=== PATIENT | female | born 1980 | race Caucasian/White ===

== ENCOUNTER 2016-09-26 08:44 | Outpatient (CLI) | payer OTHER ==
[~2016-09-26] VITALS: Ht 165.1 cm; Wt 80.3 kg
[~2016-09-26 08:44] MED LIST: CEPH250S PO; DCS100C PO; DIPH25TA82 PO; HYDR-3720 PO; Ibuprofen PO; OMEP20CA12 PO; PREN1TAB19 PO; bcp PO
[2016-09-26 08:53] VITALS: BP 118/81
[2016-09-26] MEDS ORDERED: ENAL2.5T PO (08:58)
[2016-09-26] MEDS ORDERED: CETI10TA20 PO (08:59)
[2016-09-26] MEDS ORDERED: DIPH25CA79 PO (08:59)
[2016-09-26] MEDS ORDERED: ENAL20TA PO (09:14)
[2016-09-26 09:24] LABS: BASOPHILS % (AUTO) 0 % (0-10); EOSINOPHILS # (AUTO) 0.2 10^3/uL (0.0-0.3); EOSINOPHILS % (AUTO) 2 % (0-10); LYMPHOCYTES # (AUTO) 2.1 X 10^3 (1.0-4.0); LYMPHOCYTES % (AUTO) 34 % (12-44); MEAN CORPUSCULAR HEMOGLOBIN 30 PG (25-34); MEAN CORPUSCULAR HGB CONC 34 G/DL (32-36); MEAN CORPUSCULAR VOLUME 89 FL (80-99); MEAN PLATELET VOLUME 10.5 FL (7.4-10.4); MONOCYTES # (AUTO) 0.5 X 10^3 (0.0-1.0); MONOCYTES % (AUTO) 8 % (0-12); NEUTROPHILS # (AUTO) 3.5 X 10^3 (1.8-7.8); NEUTROPHILS % (AUTO) 56 % (42-75); PLATELET COUNT 254 10^3/uL (130-400); RED BLOOD COUNT 4.81 10^6/uL (4.35-5.85); RED CELL DISTRIBUTION WIDTH 12.8 % (10.0-14.5); WHITE BLOOD COUNT 6.3 10^3/uL (4.3-11.0)
== END 2016-09-26 09:12 | disposition home or self-care (01) ==
LOC: PREOP 08:44
PROVIDERS: ATTEND Obstetrics & Gynecology
DX: Z01.812 Encounter for preprocedural laboratory examination (principal); Z11.2 Encounter for screening for other bacterial diseases; N93.8 Other specified abnormal uterine and vaginal bleeding; N92.1 Excessive and frequent menstruation with irregular cycle; D64.9 Anemia, unspecified
CPT/HCPCS: 36415; 85025; 87081

== ENCOUNTER 2016-09-30 10:07 | Day surgery (SDC) | payer OTHER ==
[~2016-09-30] VITALS: Ht 165.1 cm; Wt 80.3 kg
[~2016-09-30 10:07] MED LIST changes: +CETI10TA20 PO; +DIPH25CA79 PO; +ENAL2.5T PO; +ENAL20TA PO; +LACTATED RINGERS 1,000 ML IV PRN
[2016-09-30] MEDS ORDERED: ceFAZolin 1 GM/NS 50 ML IVPB IV ONE ×2 (10:30)
[2016-09-30 10:47] VITALS: BP 110/78
[2016-09-30] MEDS ORDERED: LIDOCAINE JELLY 2% (XYLOCAINE) 5 ML TUBE ONE ×2 (11:33)
[2016-09-30] MEDS ORDERED: LIDOCAINE PF 2% 10 ML (XYLOCAINE) AMP ONE ×2 (11:33)
[2016-09-30] MEDS ORDERED: ROCURONIUM 50 MG/5 ML (ZEMURON) VIAL IV ONE ×2 (11:33)
[2016-09-30] MEDS ORDERED: LACTATED RINGERS 1,000 ML IV ONE (11:33)
[2016-09-30] MEDS ORDERED: ONDANSETRON 4 MG/2 ML (SDV) Z0FRAN ONE ×2 (11:33)
[2016-09-30] MEDS ORDERED: MIDAZOLAM 2 MG/2 ML (VERSED) VIAL ONE (11:33)
[2016-09-30] MEDS ORDERED: LACTATED RINGERS 0 ML IV ONE (11:33)
[2016-09-30] MEDS ORDERED: proPOfol 200 MG/20 ML (DIPRIVAN) VIAL IV ONE ×2 (11:33)
[2016-09-30] MEDS ORDERED: fentaNYL INJECTION 100 MCG/2 ML AMP ONE (11:34)
[2016-09-30] MEDS ORDERED: DEXAMETHASONE PF 10 MG/ML (DECADRON) VIAL ONE (13:19)
[2016-09-30] MEDS ORDERED: SEVOFLURANE (ULTANE) 15 ML INHAL SOLN ONE (13:19)
[2016-09-30] MEDS ORDERED: D5 LR IV SOLUTION 1,000 ML IV SCH (13:22)
--- NOTE | 2016-09-30 13:22 | Progress Note-Pre Operative ---
Pre-Operative Progress Note H&P Reviewed The H&P was reviewed, patient examined and no changes noted. Date H&P Reviewed: September 30, 2016 Time H&P Reviewed: 13:22 Pre-Operative Diagnosis: dysfunctional uterine bleeding/menorrhagia DANDY SOMMERS MD September 30, 2016 1:22 pm
[2016-09-30] MEDS ORDERED: TRAM-42 PO (13:25)
--- NOTE | 2016-09-30 13:27 | Discharge Instructions ---
Discharge Instructions Discharge Medications New, Converted or Re-Newed RX: RX on Chart Patient Instructions Patient Instructions: as instructed Return to The Hospital For: as instructed Activity & Diet Discharge Diet: No Restrictions Activity as Tolerated: Yes Orders-Post D/C & Referrals Follow Up Appt: Call to make follow up appt. for patient in 2 weeks. Activity: Rest for 24 hours, than as tolerated. continue your own home medications Diet: As tolerated-Clear Liquids only if nauseated. May shower or tub bathe as desired. activity as tolerated except for nothing in the vagina for 2 weeks no tampons douching or intercourse Patient to return to the clinic as soon as possible for: Temperature greater than 101F, Severe Pain, Foul discharge from incision or vagina, Excessive Bleeding (more than a period). DANDY SOMMERS MD September 30, 2016 1:27 pm
[2016-09-30] MEDS ORDERED: ONDANSETRON 4 MG/2 ML (SDV) Z0FRAN IVP PRN ×2 (13:30→13:45)
[2016-09-30] MEDS ORDERED: MEPERIDINE (DEMEROL) INJ 100 MG/ML IM ONE (13:30)
[2016-09-30] MEDS ORDERED: PROMETHAZINE INJ 25 MG/ML (PHENERGAN) AMP IM ONE (13:30)
[2016-09-30] MEDS ORDERED: HYDROcodone/APAP 10 MG/325 MG (LORTAB) TAB PO PRN (13:30)
[2016-09-30] MEDS ORDERED: ESTROGENS CONJ IV 25 MG/5 ML (PREMARIN) VIAL IVP ONE (13:30)
[2016-09-30] MEDS ORDERED: KETOROLAC 30 MG/ML VIAL IVP ONE (13:30)
[2016-09-30] MEDS ORDERED: MEPERIDINE (DEMEROL) INJ 50 MG/ML IVP PRN (13:45)
[2016-09-30] MEDS ORDERED: fentaNYL INJECTION 100 MCG/2 ML AMP IVP PRN (13:45)
[2016-09-30] MEDS ORDERED: morphine INJ 10 MG/ML 1ML (SYR OR VIAL) IVP PRN (13:45)
[2016-09-30] MEDS ORDERED: KETOROLAC 30 MG/ML VIAL ONE (14:10)
[2016-09-30] MEDS ORDERED: morphine INJ 10 MG/ML 1ML (SYR OR VIAL) ONE (14:11)
[2016-09-30] MEDS ORDERED: ESTROGENS CONJ IV 25 MG/5 ML (PREMARIN) VIAL ONE (14:11)
[2016-09-30] MEDS ORDERED: WATER (STERILE) FOR INJECTION 10 ML ONE (14:11)
[2016-09-30 14:55] VITALS: BP 114/74
[2016-09-30 15:25] VITALS: BP 94/56
[2016-09-30 16:10] VITALS: BP 94/56
--- NOTE | 2016-10-01 12:37 | OPERATIVE REPORT ---
DATE OF SERVICE: 09/30/2016 PREOPERATIVE DIAGNOSES: 1. Dysfunctional uterine bleeding. 2. Menorrhagia. POSTOPERATIVE DIAGNOSES: 1. same with likely endometrial polyps OPERATIVE PROCEDURE: Hysteroscopy with directed biopsies and D&C. OPERATIVE DESCRIPTION: With the patient in the supine position under satisfactory general anesthesia, she was repositioned in the dorsal lithotomy position in the Napoleon stirrups and then prepped and draped in the usual fashion for vaginal surgery. The urinary bladder was entered with a straight catheter. A weighted speculum placed in the posterior fornix. The cervix was exposed and grasped anteriorly with single tooth tenaculum. The uterus was sounded to 10 1/2 cm with uterine sound. The cervix was then serially dilated with Lopez dilators to a #20 Lopez and then a #9 Heger dilator was used as the final step in dilation. The hysteroscope was entered. Using LR as a distending medium, the endometrial cavity was examined. There were polypoid masses emanating from the anterior and posterior surfaces of the uterus. Data Processing Supervisor biopsies were taken from these areas and sent to pathology for permanent section. The hysteroscope was then removed. The endometrial cavity sharply curetted in all 4 quadrants until good uterine cry and that tissue labeled appropriately and sent to pathology for permanent section as well. The hysteroscope was reintroduced. All blood clots and debris was evacuated from the uterine cavity. The endometrial cavity showed no remaining abnormal pathology and no significant bleeding. The hysteroscope was withdrawn slowly examining the endocervical canal which appeared normal as well. With the hysteroscope removed, the tenaculum was removed as well. There was some bleeding from both puncture sites. These were touched with silver nitrate to affect hemostasis. With hemostasis assured, sponge and needle counts correct, a total of 600 mL of LR was instilled and 450 mL were recovered. There was a small amount lost in the drapes. The other would have been retained by the patient. The procedure at this point was terminated. The patient was uneventfully awakened from her general anesthesia and transferred to the recovery room in stable condition with plans for discharge home PAR. The patient tolerated the procedure well. Job ID: [id number] DocumentID: [id number] Dictated Date: 09/30/2016 13:53:15 Supervisor Dials Date: 10/01/2016 06:10:19 Dictated By: MD ROSETTA BROWN
== END 2016-09-30 16:10 | disposition home or self-care (01) ==
LOC: SDC 10:07
PROVIDERS: ATTEND Obstetrics & Gynecology
DX: N93.8 Other specified abnormal uterine and vaginal bleeding (principal); N92.1 Excessive and frequent menstruation with irregular cycle; N84.0 Polyp of corpus uteri
CPT/HCPCS: 84703; 88305

== ENCOUNTER 2017-08-11 16:01 | Emergency (ER) | payer OTHER ==
[~2017-08-11] VITALS: Ht 165.1 cm; Wt 83.5 kg
[~2017-08-11 16:01] MED LIST changes: -LACTATED RINGERS 1,000 ML IV PRN; +TRAM-42 PO
[2017-08-11 16:28] LABS: BASOPHILS % (AUTO) 0 % (0-10); EOSINOPHILS # (AUTO) 0.2 10^3/uL (0.0-0.3); EOSINOPHILS % (AUTO) 4 % (0-10); HEMATOCRIT 39 % (35-52); HEMOGLOBIN 13.4 G/DL (11.5-16.0); LYMPHOCYTES # (AUTO) 2.1 X 10^3 (1.0-4.0); LYMPHOCYTES % (AUTO) 33 % (12-44); MEAN CORPUSCULAR HEMOGLOBIN 30 PG (25-34); MEAN CORPUSCULAR HGB CONC 34 G/DL (32-36); MEAN CORPUSCULAR VOLUME 88 FL (80-99); MEAN PLATELET VOLUME 10.2 FL (7.4-10.4); MONOCYTES # (AUTO) 0.7 X 10^3 (0.0-1.0); MONOCYTES % (AUTO) 11 % (0-12); NEUTROPHILS # (AUTO) 3.2 X 10^3 (1.8-7.8); NEUTROPHILS % (AUTO) 52 % (42-75); PLATELET COUNT 262 10^3/uL (130-400); RED BLOOD COUNT 4.45 10^6/uL (4.35-5.85); RED CELL DISTRIBUTION WIDTH 13.1 % (10.0-14.5); WHITE BLOOD COUNT 6.2 10^3/uL (4.3-11.0)
[2017-08-11 16:46] LABS: ALANINE AMINOTRANSFERASE 16 U/L (0-55); ALKALINE PHOSPHATASE 83 U/L (40-136); BILIRUBIN,TOTAL 0.2 MG/DL (0.1-1.0); BUN/CREATININE RATIO 8; CALCIUM 8.6 MG/DL (8.5-10.1); CARBON DIOXIDE 24 MMOL/L (21-32); CHLORIDE 107 MMOL/L (98-107); CREATININE SERUM 0.74 MG/DL (0.60-1.30); GFR ESTIMATED > 60; GLUCOSE 82 MG/DL (70-105); POTASSIUM 3.5 MMOL/L (3.6-5.0); SODIUM 140 MMOL/L (135-145)
--- NOTE | 2017-08-11 16:53 | Diagnostic Imaging Report ---
CLINICAL INDICATION: Patient with chest pain. Exam: Chest x-ray PA and lateral views. Comparisons: None. Findings: Lungs/pleura: Lungs are clear. There is no pneumothorax. There is no pleural effusion. Mediastinum: Unremarkable. Pulmonary vasculature: Unremarkable. Heart: Unremarkable. Bones/extrathoracic soft tissue: There is mild right curvature of the lumbar spine. Impression: There is no radiographic evidence of acute cardiopulmonary process. Dictated by: Dictated on workstation # [id number]
--- NOTE | 2017-08-11 17:06 | ED Chest Pain ---
General Chief Complaint: Chest Pain Stated Complaint: CP Nursing Triage Note: PATIENT STATES THAT LAST NIGHT SHE WAS DIZZY AND LIGHTHEADED. SHE WAS SLIGHTLY SOB. SHE STARTED HAVING CP TODAY STARTING AROUND 1130. TOOK 325 ASA AT 1330. WENT TO [facility] BUT WAS SENT HERE. Nursing Sepsis Screen: No Definite Risk Source: patient Exam Limitations: no limitations History of Present Illness Date Seen by Provider: Aug 11, 2017 Time Seen by Provider: 17:01 Initial Comments The patient is a 37-year-old white female who presents with a chief complaint of central upper chest pain and fluttering. She reports that last night while she was in the yard with her 3-year-old she had a short spell of this. She felt a little dizzy and then it cleared. Today was said to have been more intense and lasted longer. Even then she was going to ignore it but her mother and her coworkers prevailed. She has never smoked. She has hypertension and takes enalapril once daily. She is not diabetic. She still has menses and uses control pills. Recently she has been taking phentermine and attempt to lose some weight prior to her August. She states that her grandmother in her 50s presumably of heart disease. Timing/Duration: 1 hour Severity/Quality: moderate, pressure, tightness Location: central, other Prior CP/Workup: no prior chest pain Allergies and Home Medications Allergies Coded Allergies: yellow dye (Verified Allergy, Severe, anaphylaxis, 10/18/13) Yellow dyes # 4 and 5 Sulfa (Sulfonamide Antibiotics) (Verified Adverse Reaction, Mild, nausea/ vomiting, 10/18/13) Home Medications Cetirizine HCl 10 Mg Tablet, 10 MG PO HS, (Reported) Diphenhydramine HCl 25 Mg Capsule, 50 MG PO HS, (Reported) take 2 (25mg) tabs Enalapril Maleate 20 Mg Tablet, 20 MG PO HS, (Reported) Tramadol HCl 50 Mg Tablet, 50 MG PO Q6H Prescribed by: DANDY VILLEGAS on 09/30/16 1325 [bcp] 1 TAB, 1 TAB PO HS, (Reported) Patient Home Medication List Home Medication List Reviewed: Yes Review of Systems Constitutional: see HPI EENTM: No Symptoms Reported Respiratory: Shortness of Air (fleeting at onset of pain) Cardiovascular: Chest Pain, Palpitations Gastrointestinal: No Symptoms Reported Genitourinary: No Symptoms Reported Musculoskeletal: no symptoms reported Skin: no symptoms reported Psychiatric/Neurological: No Symptoms Reported Endocrine: No Symptoms Reported Hematologic/Lymphatic: No Symptoms Reported Past Hlrtojr-Knnmzr-Loirds Hx Patient Social History Alcohol Use: Rarely Uses Recreational Drug Use: No Smoking Status: Never a Smoker 2nd Hand Smoke Exposure: No Recent Foreign Travel: No Contact w/Someone Who Travel: No Recent Infectious Disease Expo: No Recent Hopitalizations: No Immunizations Up To Date Tetanus Booster (TDap): More than 5yrs PED Vaccines UTD: Yes Date of Influenza Vaccine: Feb 26, 2015 Seasonal Allergies Seasonal Allergies: Yes Surgeries History of Surgeries: Yes (RIGHT ANKLE SURGERY FOR LIGAMENTS) Surgeries: Appendectomy, Gallbladder, Orthopedic Respiratory History of Respiratory Disorde: No Cardiovascular History of Cardiac Disorders: Yes (heart murmur can be heard at times) Cardiac Disorders: Hypertension Neurological History of Neurological Disord: Yes (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) Neurological Disorders: Seizure Disorder Reproductive System Hx Reproductive Disorders: Yes Sexually Transmitted Disease: No HIV/AIDS: No Female Reproductive Disorders: Ovarian Cyst Gastrointestinal History of Gastrointestinal Di: No Gastrointestinal Disorders: Gall Bladder Disease Musculoskeletal History of Musculoskeletal Dis: Yes (RIGHT ANKLE RECONSTRUCTION FOR LIGAMENTS) Endocrine History of Endocrine Disorders: No HEENT Loss of Vision: Denies Hearing Impairment: Denies Cancer History of Cancer: No Psychosocial History of Psychiatric Problem: No Integumentary History of Skin or Integumenta: No Blood Transfusions History of Blood Disorders: No Family Medical History Family Medial History: Arthritis 19 MOTHER MATERNAL GDMA Cardiovascular disease MATERNAL GDPA PATERNAL GDMA Cataracts MATERNAL GDMA MATERNAL GDPA Diabetes mellitus PATERNAL GDMA Headache disorder 19 MOTHER Hypertension PATERNAL GDMA Myocardial infarction PATERNAL GDMA Osteoporosis 19 MOTHER MATERNAL GDMA No Family History of: AIDS Abdominal aortic aneurysm Benton's disease Alcoholism Alzheimer's disease Aphasia Asthma Cancer of mouth Colon cancer Completed stroke Congenital disease Congenital heart disease Coronary thrombosis Cystic fibrosis Deafness or hearing loss Dementia Drug abuse Dysphasia Fibrocystic disease of breast Gastroenteritis Glaucoma Hypercholesterolemia Infertility Kidney disease Neoplasm Not obtainable due to adoption Parkinson's disease Prostate cancer Psychosocial problem Respiratory disorder Seizure disorder Severe allergy Thyroid disease Tuberculosis Visual disorder Physical Exam Vital Signs Vital Signs - First Documented 08/11/17 16:06 Temp 98.0 Pulse 92 Resp 18 B/P (MAP) 136/98 (111) Pulse Ox 98 O2 Delivery Room Air Capillary Refill : Less Than 3 Seconds General Appearance: Anxious HEENT: Normal ENT Inspection Neck: Full Range of Motion, Normal Inspection, Non Tender Respiratory: Chest Non Tender, Lungs Clear, Normal Breath Sounds, No Accessory Muscle Use, No Respiratory Distress Cardiovascular: Regular Rate, Rhythm, No Edema, No Gallop, No JVD, No Murmur, Normal Peripheral Pulses Gastrointestinal: Normal Bowel Sounds, No Organomegaly, No Pulsatile Mass, Non Tender Extremity: Normal Capillary Refill, Normal Inspection, Normal Range of Motion, Non Tender, No Calf Tenderness, No Pedal Edema Neurologic/Psychiatric: Alert, Oriented x3, No Motor/Sensory Deficits, Normal Mood/Affect Skin: Normal Color, Warm/Dry Lymphatic: No Adenopathy Progress/Results/Core Measures Results/Orders Lab Results Laboratory Tests Test 08/11/17 16:20 Range/Units White Blood Count 6.2 4.3-11.0 10^3/uL Red Blood Count 4.45 4.35-5.85 10^6/uL Hemoglobin 13.4 11.5-16.0 G/DL Hematocrit 39 35-52 % Mean Corpuscular Volume 88 80-99 FL Mean Corpuscular Hemoglobin 30 25-34 PG Mean Corpuscular Hemoglobin Concent 34 32-36 G/DL Red Cell Distribution Width 13.1 10.0-14.5 % Platelet Count 262 130-400 10^3/uL Mean Platelet Volume 10.2 7.4-10.4 FL Neutrophils (%) (Auto) 52 42-75 % Lymphocytes (%) (Auto) 33 12-44 % Monocytes (%) (Auto) 11 0-12 % Eosinophils (%) (Auto) 4 0-10 % Basophils (%) (Auto) 0 0-10 % Neutrophils # (Auto) 3.2 1.8-7.8 X 10^3 Lymphocytes # (Auto) 2.1 1.0-4.0 X 10^3 Monocytes # (Auto) 0.7 0.0-1.0 X 10^3 Eosinophils # (Auto) 0.2 0.0-0.3 10^3/uL Basophils # (Auto) 0.0 0.0-0.1 10^3/uL Sodium Level 140 135-145 MMOL/L Potassium Level 3.5 L 3.6-5.0 MMOL/L Chloride Level 107 98-107 MMOL/L Carbon Dioxide Level 24 21-32 MMOL/L Anion Gap 9 5-14 MMOL/L Blood Urea Nitrogen 6 L 7-18 MG/DL Creatinine 0.74 0.60-1.30 MG/DL Estimat Glomerular Filtration Rate > 60 BUN/Creatinine Ratio 8 Glucose Level 82 70-105 MG/DL Calcium Level 8.6 8.5-10.1 MG/DL Total Bilirubin 0.2 0.1-1.0 MG/DL Aspartate Amino Transf (AST/SGOT) 15 5-34 U/L Alanine Aminotransferase (ALT/SGPT) 16 0-55 U/L Alkaline Phosphatase 83 40-136 U/L Troponin I < 0.30 <0.30 NG/ML Total Protein 7.0 6.4-8.2 GM/DL Albumin 4.0 3.2-4.5 GM/DL My Orders Orders - RANDY ARAUJO MD Ekg Tracing (08/11/17 16:05) Cbc With Automated Diff (08/11/17 16:19) Comprehensive Metabolic Panel (08/11/17 16:19) Troponin I (08/11/17 16:19) Chest 1 View, Ap/Pa Only (08/11/17 16:19) Vital Signs/I&O Vital Sign - Last 12Hours 08/11/17 16:06 Temp 98.0 Pulse 92 Resp 18 B/P (MAP) 136/98 (111) Pulse Ox 98 O2 Delivery Room Air Blood Pressure Mean: 111 Departure Communication (Admissions) Progress Notes Reports that pulse at her job was said to be 120 Lab and EKG are negative. Impression Impression: Primary Impression: Chest pain Disposition: 01 HOME, SELF-CARE Condition: Improved Departure-Patient Inst. Decision time for Depature: 17:29 Referrals: JAM PALMER MD (PCP/Family) Primary Care Physician Patient Instructions: Chest Pain That Is Not Caused by the Heart (DC) Add. Discharge Instructions: All discharge instructions reviewed with patient and/or family. Voiced understanding. Stop the phentermine Return if recurrence of pain or palpitation RANDY ARAUJO MD Aug 11, 2017 17:06
[2017-08-11 17:34] VITALS: BP 136/98
--- OUTSIDE RECORDS SUMMARY | 2017-08-11 17:46 | XMS REPORT | Continuity of Care Document ---
Author Author [facility] Organization [facility] Address Unknown Phone Unavailable Allergies Active Description Code Type Severity Reaction Onset Reported/Identified Relationship to Patient Clinical Status Yes Sulfa (Sulfonamide Antibiotics) [id number] Drug Allergy Mild nausea/vomiting 10/18/2013 Yes yellow dye [id number] Drug Allergy Severe anaphylaxis 10/18/2013 Medications There is no data. Problems Date Dx Coded Attending Type Code Diagnosis Diagnosed By 10/19/2013 TOOTIE DAMIAN, DANDY Corado Ot 543.0 10/19/2013 TOOTIE DAMIAN, DANDY Corado Ot 620.2 10/19/2013 DANDY SOMMERS MD Ot 620.5 10/19/2013 DANDY SOMMERS MD, Ot 620.8 10/19/2013 DANDY SOMMERS MD Ot 648.93 05/01/2014 DANDY SOMMERS MD, Ot 642.43 05/01/2014 DANDY SOMMERS MD, Ot 642.43 05/02/2014 DANDY SOMMERS MD Ot 642.43 05/07/2014 DANDY SOMMERS MD Ot 642.43 05/08/2014 DANDY SOMMERS MD Ot 642.43 05/12/2014 DANDY SOMMERS MD Ot 642.43 05/12/2014 DANDY SOMMERS MD Ot 642.43 05/23/2015 SHANTAL RAI APRN Ot R11.2 NAUSEA WITH VOMITING, UNSPECIFIED 05/23/2015 SHANTAL RAI APRN Ot R19.7 DIARRHEA, UNSPECIFIED 05/23/2015 DANDY SOMMERS MD Ot 642.43 05/26/2015 DANDY SOMMERS MD, Ot 642.43 10/09/2015 ILIANA MORALES DDS Ot H05.011 CELLULITIS OF RIGHT ORBIT 10/27/2015 LOWE DDS, ILIANA Ot H05.011 CELLULITIS OF RIGHT ORBIT 09/16/2016 DANDY SOMMERS MD, Ot 642.43 MILD/NOS PREECLAMP-ANTEP 09/16/2016 LOWE DDS, ILIANA Ot H05.011 CELLULITIS OF RIGHT ORBIT 09/23/2016 DANDY SOMMERS MD, Ot 642.43 MILD/NOS PREECLAMP-ANTEP 09/23/2016 LOWE DDS, ILIANA Ot H05.011 CELLULITIS OF RIGHT ORBIT 09/26/2016 DANDY SOMMERS MD, Ot D64.9 ANEMIA, UNSPECIFIED 09/26/2016 DANDY OSMMERS MD, Ot N92.1 EXCESSIVE AND FREQUENT MENSTRUATION WITH 09/26/2016 DANDY SOMMERS MD, Ot N93.8 OTHER SPECIFIED ABNORMAL UTERINE AND VAG 09/26/2016 DANDY SOMMERS MD, Ot Z01.812 ENCOUNTER FOR PREPROCEDURAL LABORATORY E 09/26/2016 DANDY SOMMERS MD, Ot Z11.2 ENCOUNTER FOR SCREENING FOR OTHER BACTER 09/28/2016 DANDY SOMMERS MD, Ot 642.43 MILD/NOS PREECLAMP-ANTEP 09/28/2016 LOWE DDS, ILIANA Ot H05.011 CELLULITIS OF RIGHT ORBIT 09/30/2016 DANDY SOMMERS MD Ot N84.0 POLYP OF CORPUS UTERI 09/30/2016 DANDY SOMMERS MD, Ot N92.1 EXCESSIVE AND FREQUENT MENSTRUATION WITH 09/30/2016 DANDY SOMMERS MD Ot N93.8 OTHER SPECIFIED ABNORMAL UTERINE AND VAG 10/02/2016 DANDY SOMMERS MD, Ot D64.9 ANEMIA, UNSPECIFIED 10/02/2016 DANDY SOMMERS MD, Ot N92.1 EXCESSIVE AND FREQUENT MENSTRUATION WITH 10/02/2016 DANDY SOMMERS MD, Ot N93.8 OTHER SPECIFIED ABNORMAL UTERINE AND VAG 10/02/2016 DANDY SOMMERS MD, Ot Z01.812 ENCOUNTER FOR PREPROCEDURAL LABORATORY E 10/02/2016 DANDY SOMMERS MD, Ot Z11.2 ENCOUNTER FOR SCREENING FOR OTHER BACTER 10/05/2016 DANDY SOMMERS MD, Ot N84.0 POLYP OF CORPUS UTERI 10/05/2016 DANDY SOMMERS MD, Ot N92.1 EXCESSIVE AND FREQUENT MENSTRUATION WITH 10/05/2016 DANDY SOMMERS MD Ot N93.8 OTHER SPECIFIED ABNORMAL UTERINE AND VAG 10/12/2016 DANDY SOMMERS MD, Ot N84.0 POLYP OF CORPUS UTERI 10/12/2016 DANDY SOMMERS MD, Ot N92.1 EXCESSIVE AND FREQUENT MENSTRUATION WITH 10/12/2016 DANDY SOMMERS MD, Ot N93.8 OTHER SPECIFIED ABNORMAL UTERINE AND VAG 10/27/2016 DANDY SOMMERS MD, Ot 642.43 MILD/NOS PREECLAMP-ANTEP 10/27/2016 LOWE DDS, ILIANA Ot H05.011 CELLULITIS OF RIGHT ORBIT 11/12/2016 DANDY SOMMERS MD, Ot 642.43 MILD/NOS PREECLAMP-ANTEP 11/12/2016 LOWAelja DDS, ILIANA Ot H05.011 CELLULITIS OF RIGHT ORBIT Procedures There is no data. Results Test Result Range Complete blood count (CBC) with automated white blood cell (WBC) differential - 09/26/16 09:10 Blood leukocytes automated count (number/volume) 6.3 10*3/uL 4.3-11.0 Blood erythrocytes automated count (number/volume) 4.81 10*6/uL 4.35-5.85 Venous blood hemoglobin measurement (mass/volume) 14.3 g/dL 11.5-16.0 Blood hematocrit (volume fraction) 43 % 35-52 Automated erythrocyte mean corpuscular volume 89 [foz_us] 80-99 Automated erythrocyte mean corpuscular hemoglobin (mass per erythrocyte) 30 pg 25-34 Automated erythrocyte mean corpuscular hemoglobin concentration measurement ( mass/volume) 34 g/dL 32-36 Automated erythrocyte distribution width ratio 12.8 % 10.0-14.5 Automated blood platelet count (count/volume) 254 10*3/uL 130-400 Automated blood platelet mean volume measurement 10.5 [foz_us] 7.4-10.4 Automated blood neutrophils/100 leukocytes 56 % 42-75 Automated blood lymphocytes/100 leukocytes 34 % 12-44 Blood monocytes/100 leukocytes 8 % 0-12 Automated blood eosinophils/100 leukocytes 2 % 0-10 Automated blood basophils/100 leukocytes 0 % 0-10 Blood neutrophils automated count (number/volume) 3.5 10*3 1.8-7.8 Blood lymphocytes automated count (number/volume) 2.1 10*3 1.0-4.0 Blood monocytes automated count (number/volume) 0.5 10*3 0.0-1.0 Automated eosinophil count 0.2 10*3/uL 0.0-0.3 Automated blood basophil count (count/volume) 0.0 10*3/uL 0.0-0.1 Methicillin resistant Staphylococcus aureus (MRSA) screening culture - 09:10 Methicillin resistant Staphylococcus aureus (MRSA) screening culture NEG NRG Urine beta human chorionic gonadotropin (hCG) measurement - 09/30/16 10:25 Urine beta human chorionic gonadotropin (hCG) measurement NEGATIVE NEGATIVE Complete blood count (CBC) with automated white blood cell (WBC) differential - 08/11/17 16:20 Blood leukocytes automated count (number/volume) 6.2 10*3/uL 4.3-11.0 Blood erythrocytes automated count (number/volume) 4.45 10*6/uL 4.35-5.85 Venous blood hemoglobin measurement (mass/volume) 13.4 g/dL 11.5-16.0 Blood hematocrit (volume fraction) 39 % 35-52 Automated erythrocyte mean corpuscular volume 88 [foz_us] 80-99 Automated erythrocyte mean corpuscular hemoglobin (mass per erythrocyte) 30 pg 25-34 Automated erythrocyte mean corpuscular hemoglobin concentration measurement ( mass/volume) 34 g/dL 32-36 Automated erythrocyte distribution width ratio 13.1 % 10.0-14.5 Automated blood platelet count (count/volume) 262 10*3/uL 130-400 Automated blood platelet mean volume measurement 10.2 [foz_us] 7.4-10.4 Automated blood neutrophils/100 leukocytes 52 % 42-75 Automated blood lymphocytes/100 leukocytes 33 % 12-44 Blood monocytes/100 leukocytes 11 % 0-12 Automated blood eosinophils/100 leukocytes 4 % 0-10 Automated blood basophils/100 leukocytes 0 % 0-10 Blood neutrophils automated count (number/volume) 3.2 10*3 1.8-7.8 Blood lymphocytes automated count (number/volume) 2.1 10*3 1.0-4.0 Blood monocytes automated count (number/volume) 0.7 10*3 0.0-1.0 Automated eosinophil count 0.2 10*3/uL 0.0-0.3 Automated blood basophil count (count/volume) 0.0 10*3/uL 0.0-0.1 Comprehensive metabolic panel - 08/11/17 16:20 Serum or plasma sodium measurement (moles/volume) 140 mmol/L 135-145 Serum or plasma potassium measurement (moles/volume) 3.5 mmol/L 3.6-5.0 Serum or plasma chloride measurement (moles/volume) 107 mmol/L 98-107 Carbon dioxide 24 mmol/L 21-32 Serum or plasma anion gap determination (moles/volume) 9 mmol/L 5-14 Serum or plasma urea nitrogen measurement (mass/volume) 6 mg/dL 7-18 Serum or plasma creatinine measurement (mass/volume) 0.74 mg/dL 0.60-1.30 Serum or plasma urea nitrogen/creatinine mass ratio 8 NRG Serum or plasma creatinine measurement with calculation of estimated glomerular filtration rate > NRG Serum or plasma glucose measurement (mass/volume) 82 mg/dL 70-105 Serum or plasma calcium measurement (mass/volume) 8.6 mg/dL 8.5-10.1 Serum or plasma total bilirubin measurement (mass/volume) 0.2 mg/dL 0.1-1.0 Serum or plasma alkaline phosphatase measurement (enzymatic activity/volume) 83 U/L 40-136 Serum or plasma aspartate aminotransferase measurement (enzymatic activity/ volume) 15 U/L 5-34 Serum or plasma alanine aminotransferase measurement (enzymatic activity/volume ) 16 U/L 0-55 Serum or plasma protein measurement (mass/volume) 7.0 g/dL 6.4-8.2 Serum or plasma albumin measurement (mass/volume) 4.0 g/dL 3.2-4.5 Serum or plasma troponin i.cardiac measurement (mass/volume) - 08/11/17 16:20 Serum or plasma troponin i.cardiac measurement (mass/volume) < ng/ mL <0.30 Encounters ACCT No. Visit Date/Time Discharge Status Pt. Type Provider Facility Loc./Unit Complaint [id number] 09/30/2016 10:07:00 09/30/2016 16:10:00 DIS Outpatient DANDY SOMMERS MD [facility] DUB/MENORRHAGIA [id number] 09/26/2016 08:44:00 09/26/2016 09:12:00 DIS Outpatient DANDY SOMMERS MD [facility] PREOP N92.1 [id number] 10/08/2015 09:11:00 10/08/2015 23:59:59 CLS Outpatient BRADYAleja ROBIN ILIANA [facility] RAD RIGHT ORBITAL CELLULITIS [id number] 05/23/2015 16:30:00 05/23/2015 20:50:00 DIS Emergency SHANTAL RAI APRN [facility] ER DIARRHEA/NAUSEA [id number] 03/04/2014 15:59:00 03/07/2014 14:20:00 DIS Inpatient [id number] 03/03/2014 15:04:00 03/03/2014 23:59:59 CLS Outpatient DANDY SOMMERS MD [facility] LABNPT Mild or unspecified pre-eclampsia, antepartum cond [id number] 02/20/2014 10:25:00 02/20/2014 16:57:00 DIS Inpatient [id number] 10/18/2013 11:35:00 10/19/2013 09:30:00 DIS Outpatient DANDY SOMMERS MD [facility] [id number] 08/11/2017 16:04:00 ACT Emergency RANDY ARAUJO MD [facility] ER CP
== END 2017-08-11 17:39 | disposition home or self-care (01) ==
LOC: EDUNIT# 16:01 → ER 16:04
DX: R07.89 Other chest pain (principal); G40.909 Epilepsy, unspecified, not intractable, without status epilepticus; I10 Essential (primary) hypertension; Z87.19 Personal history of other diseases of the digestive system; Z87.42 Personal history of other diseases of the female genital tract; Z90.49 Acquired absence of other specified parts of digestive tract; Z88.2 Allergy status to sulfonamides; Z91.041 Radiographic dye allergy status; Z98.890 Other specified postprocedural states
CPT/HCPCS: 36415; 71045; 80053; 84484; 85025; 93005

== ENCOUNTER → 2018-02-14 | Outpatient (CLI) | payer OTHER ==
--- NOTE | 2018-02-14 15:19 | Diagnostic Imaging Report ---
PROCEDURE: MRI right joint lower extremity without contrast. TECHNIQUE: Multiplanar, multisequence non contrast-enhanced MRI of the right lower extremity was accomplished. INDICATION: Prior ankle surgery. The patient has increasing pain in the right ankle both anteriorly as well as medially and laterally. COMPARISON: No prior studies are available for comparison. FINDINGS: The marrow signal intensity of the ankle and hindfoot is unremarkable apart from minimal nonspecific edema within the lateral calcaneus. T1-weighted images as well as proton density images demonstrate some minimal curvilinear low signal at this location and the possibility of some stress reaction in the calcaneus and possible stress fracture is suspected. Clinical correlation of pain at this location is recommended. The marrow signal intensity of the talus as well as the distal tibia and fibula is normal. There is some artifact identified in the region of the distal fibula, likely owing to prior surgery. The Achilles tendon has a normal signal intensity and normal morphology. The posterior tibialis, flexor digitorum and flexor hallucis longus tendons appear to be intact. The peroneus longus tendon is intact. There appears to be a longitudinal split involving the peroneus brevis tendon which commences at the level of the lateral malleolus and extends inferiorly to the level of the anterior calcaneus. No complete tear or retraction is seen. The anterior and posterior syndesmotic ligaments as well as posterior talofibular ligament are intact. The anterior talofibular ligament demonstrates moderate amount of fluid signal and is not well seen and may be chronically torn. The superficial and deep bundles of the deltoid appear intact. IMPRESSION: 1. Marrow edema within the calcaneus and with findings suspicious for stress reaction and possible stress fracture. Correlation to pain in the calcaneus is recommended. 2. Findings suggestive of longitudinal split involving the peroneus brevis tendon, as described. No complete tear or retraction is seen. 3. Anterior talofibular ligament tear, perhaps chronic. Dictated by: Dictated on workstation # [id number]
== END ==
LOC: RAD 13:29
PROVIDERS: ATTEND Orthopaedic Surgery
DX: S93.491A Sprain of other ligament of right ankle, initial encounter (principal); M21.6X1 Other acquired deformities of right foot; Z98.890 Other specified postprocedural states
CPT/HCPCS: 73721

== ENCOUNTER → 2019-11-11 | Outpatient (CLI) | payer BC, OTHER ==
[~2019-11-11] MED LIST changes: -CETI10TA20 PO; +CETI10TA21 PO
--- NOTE | 2019-11-11 13:48 | Diagnostic Imaging Report ---
INDICATION: Routine screening. Comparison is made with prior mammogram 07/11/2016. 2-D and 3-D bilateral screening mammography was performed with CAD. Both breasts remain heterogenously dense, limiting the sensitivity of mammography. The parenchymal pattern is stable. No dominant mass or malignant-appearing microcalcifications are identified. Axillae are unremarkable. IMPRESSION: BI-RADS Category 1 No mammographic features suspicious for malignancy are identified. ACR BI-RADS Category 1: Negative. Result letter will be mailed to the patient. Note: At least 10% of breast cancer is not imaged by mammography. Dictated by: Dictated on workstation # [id number]
== END ==
LOC: RAD 09:37
PROVIDERS: ATTEND Obstetrics & Gynecology
DX: Z12.31 Encounter for screening mammogram for malignant neoplasm of breast (principal)
CPT/HCPCS: 77063; 77067

== ENCOUNTER 2020-10-31 11:10 | Emergency (ER) | payer BC ==
[~2020-10-31] VITALS: Ht 165 cm; Wt 81.0 kg
[~2020-10-31 11:10] MED LIST changes: -CETI10TA21 PO; +CETI10TA49 PO; -ENAL2.5T PO; -ENAL20TA PO; +ENAL20TA16 PO; +ENLP2.5T PO
[2020-10-31] MEDS ORDERED: PRD20T PO ×2 (12:24→12:27)
[2020-10-31] MEDS ORDERED: ACHD5005 PO ×2 (12:24→12:27)
[2020-10-31] MEDS ORDERED: GABA300C PO ×2 (12:24→12:27)
--- NOTE | 2020-10-31 12:25 | ED Back Pain ---
General Chief Complaint: Back Problems Stated Complaint: LOWER BACK PAIN/L LEG PAIN Nursing Triage Note: BACK ACHE FOR A FEW WEEKS THEN MONDAY IT BECAME WORSE. TRIED CHIROPRACTOR AND MONDAY WITH SLIGHT RELIEF THEN MONDAY L LEG PAIN STARTED AND TRIED TRACTION AND TENS FOR THAT. PAIN IS 10/10 TODAY Nursing Sepsis Screen: No Definite Risk Source of Information: Patient Exam Limitations: No Limitations History of Present Illness Date Seen by Provider: Oct 31, 2020 Time Seen by Provider: 12:01 Initial Comments This 40-year-old young lady presents to the emergency room with pain in the lower back radiating down the left leg that started about 5 days ago. She woke with fairly severe pain and went to the chiropractor for adjustments. This did not give her sufficient relief. She then went to physical therapy for traction and TENS unit therapy. She was also taking Aleve and Flexeril. These treatments were also insufficient for treating her pain. She reports a fairly significant pain radiating down the left hamstring area and tingling in the left foot. These areas are not tender but are painful. She is taking Tylenol No. 3 now for pain. She took 1 just prior to coming to the emergency room. She took Aleve at 0130 and 0.25 of a Flexeril tablet at 08: 00. She does have a remote history of similar problems in the past. She denies any true leg weakness or bowel or bladder dysfunction. Allergies and Home Medications Allergies Coded Allergies: yellow dye (Verified Allergy, Severe, anaphylaxis, 10/18/13) Yellow dyes # 4 and 5 Sulfa (Sulfonamide Antibiotics) (Verified Adverse Reaction, Mild, nausea/vomiting, 10/18/13) Home Medications Cetirizine HCl 10 Mg Tablet, 10 MG PO HS, (Reported) Diphenhydramine HCl 25 Mg Capsule, 50 MG PO HS, (Reported) take 2 (25mg) tabs Enalapril Maleate 20 Mg Tablet, 20 MG PO HS, (Reported) Gabapentin 300 Mg Capsule, 300 MG PO TID PRN for PAIN-BREAKTHROUGH Prescribed by: ERIC SHIRLEY on 10/31/20 1227 Hydrocodone/Acetaminophen 1 Each Tablet, 1-2 TAB PO Q6H PRN for PAIN- BREAKTHROUGH Prescribed by: ERIC SHIRLEY on 10/31/20 1228 Prednisone 20 Mg Tab, 20 MG PO DAILY Prescribed by: ERIC SHIRLEY on 10/31/20 1227 Tramadol HCl 50 Mg Tablet, 50 MG PO Q6H Prescribed by: DANDY VILLEGAS on 09/30/16 1325 [bcp] 1 TAB, 1 TAB PO HS, (Reported) Patient Home Medication List Home Medication List Reviewed: Yes Review of Systems Constitutional: no symptoms reported EENTM: no symptoms reported Respiratory: no symptoms reported Cardiovascular: no symptoms reported Gastrointestinal: no symptoms reported Genitourinary: no symptoms reported : No Musculoskeletal: see HPI Skin: no symptoms reported Psychiatric/Neurological: See HPI Past Ajspqny-Clgjdy-Jcejgu Hx Past Med/Social Hx: Reviewed Nursing Past Med/Soc Hx Patient Social History Alcohol Use: Rarely Uses 2nd Hand Smoke Exposure: No Recent Infectious Disease Expo: No Recent Hopitalizations: No Immunizations Up To Date Tetanus Booster (TDap): More than 5yrs PED Vaccines UTD: Yes Date of Influenza Vaccine: Feb 26, 2015 Seasonal Allergies Seasonal Allergies: Yes Past Medical History Surgeries: Yes (RIGHT ANKLE SURGERY FOR LIGAMENTS) Abdominal (Ovarian Torsion), Appendectomy, Gallbladder, Orthopedic Respiratory: No Cardiac: Yes (heart murmur can be heard at times) Hypertension 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) Seizure Disorder Reproductive Disorders: Yes Female Reproductive Disorders: Ovarian Cyst Sexually Transmitted Disease: No HIV/AIDS: No Gastrointestinal: No Gall Bladder Disease Musculoskeletal: Yes (RIGHT ANKLE RECONSTRUCTION FOR LIGAMENTS) Endocrine: No Loss of Vision: Denies Hearing Impairment: Denies Cancer: No Psychosocial: No Integumentary: No Blood Disorders: No Family Medical History Arthritis 19 MOTHER MATERNAL GDMA Cardiovascular disease MATERNAL GDPA PATERNAL GDMA Cataracts MATERNAL GDMA MATERNAL GDPA Diabetes mellitus PATERNAL GDMA Headache disorder 19 MOTHER Hypertension PATERNAL GDMA Myocardial infarction PATERNAL GDMA Osteoporosis 19 MOTHER MATERNAL GDMA No Family History of: AIDS Abdominal aortic aneurysm Craighead's disease Alcoholism Alzheimer's disease Aphasia Asthma Cancer of mouth Colon cancer Completed stroke Congenital disease Congenital heart disease Coronary thrombosis Cystic fibrosis Deafness or hearing loss Dementia Drug abuse Dysphasia Fibrocystic disease of breast Gastroenteritis Glaucoma Hypercholesterolemia Infertility Kidney disease Neoplasm Not obtainable due to adoption Parkinson's disease Prostate cancer Psychosocial problem Respiratory disorder Seizure disorder Severe allergy Thyroid disease Tuberculosis Visual disorder Physical Exam Vital Signs Vital Signs - First Documented 10/31/20 10/31/20 11:22 12:48 Temp 36.7 Pulse 91 Resp 20 B/P (MAP) 133/95 (108) Pulse Ox 100 O2 Delivery Room Air Capillary Refill : Less Than 3 Seconds Height, Weight, BMI Height: 5'5.00" Weight: 184lbs. 0oz. 83.868712po; 29.00 BMI Method:Stated General Appearance: WD/WN, Mild Distress HEENT: PERRL/EOMI, Normal ENT Inspection Neck: Normal Inspection Cardiovascular: Regular Rate, Rhythm, No Edema, No Murmur Respiratory: Lungs Clear, Normal Breath Sounds, No Accessory Muscle Use Gastrointestinal: Non Tender, Soft Back: Normal Inspection, No Vertebral Tenderness; No Muscle Spasm Extremity: Normal Inspection, Non Tender, No Pedal Edema Neurologic/Psychiatric: Alert, Oriented x3, No Motor/Sensory Deficits, Normal Mood/Affect, store administrator II-XII Norm as Tested Skin: Normal Color, Warm/Dry Progress/Results/Core Measures Results/Orders My Orders Orders - ERIC VANN MD Ketorolac Injection (Toradol Injection) (10/31/20 12:30) Orphenadrine Inj (Ed Only) (Norflex Inje (10/31/20 12:30) Medications Given in ED Current Medications Medications Dose Ordered Sig/Bienvenido Route Start Time Stop Time Status Last Admin Dose Admin Ketorolac Tromethamine 30 mg ONCE ONCE IM 10/31/20 12:30 10/31/20 12:31 DC 10/31/20 12:24 30 MG Orphenadrine Citrate 60 mg ONCE ONCE IM 10/31/20 12:30 10/31/20 12:31 DC 10/31/20 12:24 60 MG Vital Signs/I&O 10/31/20 10/31/20 11:22 12:48 Temp 36.7 36.7 Pulse 91 91 Resp 20 20 B/P (MAP) 133/95 (108) 133/95 (108) Pulse Ox 100 O2 Delivery Room Air Blood Pressure Mean: 108 Progress Progress Note : Progress Note Toradol and Norflex injections were provided. Plan of care reviewed with patient. See discharge instructions for further discussion. Return precautions were reviewed. Departure Impression Primary Impression: Lumbar back pain with radiculopathy affecting left lower extremity Disposition: HOME, SELF-CARE Condition: Improved Departure-Patient Inst. Decision time for Depature: 12:20 Referrals: MOISES JAEGER MD (PCP/Family) Primary Care Physician Patient Instructions: Radiculopathy, Low Back Pain ED Add. Discharge Instructions: For primary pain control you may take Aleve (naproxen) up to 500 mg twice daily. Add hydrocodone as prescribed for pain not controlled by Aleve. You may use the Flexeril per your usual instructions. If the above medications are not effective, you may try the gabapentin as prescribed for nerve pain. Complete the steroids as prescribed to help with inflammation reduction. Take early in the day with food or milk. Follow-up with your primary care provider soon as possible. If symptoms are not rapidly improving, you may need further evaluation with MRI. Gradually increase level of activity as pain allows. Return to the emergency room immediately if you develop true weakness in your legs, escalating pain, numbness in your groin, or dysfunction of your bowels or bladder. Call with questions or concerns. All discharge instructions reviewed with patient and/or family. Voiced understanding. Scripts Hydrocodone/Acetaminophen (Hydrocodone-Acetamin 5-325 mg) 1 Each Tablet 1-2 TAB PO Q6H PRN for PAIN-BREAKTHROUGH, #15 TAB Prov: ERIC VANN MD 10/31/20 Gabapentin (Neurontin) 300 Mg Capsule 300 MG PO TID PRN for PAIN-BREAKTHROUGH, #10 CAP Prov: ERIC VNAN MD 10/31/20 Prednisone (Prednisone) 20 Mg Tab 20 MG PO DAILY, #4 TAB 0 Refills Prov: ERIC VANN MD 10/31/20 Copy Copies To 1: MOISES JAEGER MD, JOSHUA T MD Oct 31, 2020 12:25
[2020-10-31] MEDS ORDERED: KETOROLAC 30 MG/ML VIAL IM ONE (12:30)
[2020-10-31] MEDS ORDERED: ORPHENADRINE 60 MG/2 ML (NORFLEX) AMP (ED ONLY) IM ONE (12:30)
[2020-10-31 12:48] VITALS: BP 133/95
== END 2020-10-31 12:48 | disposition home or self-care (01) ==
LOC: EDUNIT# 11:10 → ER 11:11
DX: M54.16 Radiculopathy, lumbar region (principal); I10 Essential (primary) hypertension; G40.909 Epilepsy, unspecified, not intractable, without status epilepticus; Z79.899 Other long term (current) drug therapy
CPT/HCPCS: 99284

== ENCOUNTER → 2021-09-23 | Outpatient (CLI) | payer BC ==
[~2021-09-23] MED LIST changes: +ACHD5005 PO; +GABA300C PO; +PRD20T PO
--- NOTE | 2021-09-24 10:04 | Diagnostic Imaging Report ---
Indication: Routine screening. Comparison is made with prior mammograms from 11/11/2019 and 07/11/2016. 2-D and 3-D bilateral screening mammography was performed with CAD. Both breasts are heterogeneously dense, limiting the sensitivity of mammography. No mass or malignant-appearing microcalcifications are seen. Axillae are unremarkable. IMPRESSION: BI-RADS Category 1 No mammographic features suspicious for malignancy are identified. ACR BI-RADS Category 1: Negative. Result letter will be mailed to the patient. Note: At least 10% of breast cancer is not imaged by mammography. Dictated by: Dictated on workstation # [id number]
== END ==
LOC: RAD 14:27
PROVIDERS: ATTEND Obstetrics & Gynecology
DX: Z12.31 Encounter for screening mammogram for malignant neoplasm of breast (principal)
CPT/HCPCS: 77063; 77067

== ENCOUNTER → 2023-03-01 | Outpatient (CLI) | payer BC ==
[~2023-03-01] MED LIST changes: +ENAL-70 PO; -ENAL20TA16 PO; +IBUP-1780 PO; +TRAM50TA3 PO
== END ==
LOC: ORTHO 11:13
PROVIDERS: ATTEND Orthopaedic Surgery
DX: S63.282A Dislocation of proximal interphalangeal joint of right middle finger, initial encounter (principal); I10 Essential (primary) hypertension; E66.9 Obesity, unspecified
CPT/HCPCS: 99203

== ENCOUNTER → 2023-03-15 | Outpatient (CLI) | payer BC | LOC: ORTHO 08:53 | PROVIDERS: ATTEND Orthopaedic Surgery | DX: S63.282D Dislocation of proximal interphalangeal joint of right middle finger, subsequent encounter (principal); I10 Essential (primary) hypertension; E66.9 Obesity, unspecified; X58.XXXD Exposure to other specified factors, subsequent encounter | CPT/HCPCS: 99213 ==

== ENCOUNTER → 2023-04-05 | Outpatient (CLI) | payer BC | LOC: ORTHO 12:03 | PROVIDERS: ATTEND Orthopaedic Surgery | DX: S63.25 Unspecified dislocation of other finger (principal) | CPT/HCPCS: 99213 ==